=== PATIENT | male | born 2000 | race Caucasian/White ===

== ENCOUNTER 2024-02-14 12:34 | Emergency (ER) | payer BC ==
[~2024-02-14] VITALS: Ht 182.9 cm; Wt 81.8 kg
[~2024-02-14 12:34] MED LIST: ILOTYCIN5 MG/GM OP
[2024-02-14 12:39] VITALS: TEMP 98.6
[2024-02-14] MEDS ORDERED: NS 1,000 ML IV ONE (14:00)
[2024-02-14] MEDS ORDERED: dexAMETHasone 10 MG/ML VIAL IV ONE (14:00)
[2024-02-14] MEDS ORDERED: Ketorolac 30 MG/ML VIAL IV ONE (14:00)
[2024-02-14 15:45] VITALS: BP 124/63; PULSE 78
== END 2024-02-14 15:49 | disposition home or self-care (01) ==
LOC: COL.ER 12:34
DX: B27.90 Infectious mononucleosis, unspecified without complication (principal); J03.90 Acute tonsillitis, unspecified; Z79.52 Long term (current) use of systemic steroids
CPT/HCPCS: J1100; J1885; J7030

== ENCOUNTER 2024-02-16 02:51 | Emergency (ER) | payer BC ==
[~2024-02-16] VITALS: Ht 182.9 cm; Wt 81.8 kg
[2024-02-16 03:01] VITALS: TEMP 98.4
[2024-02-16] MEDS ORDERED: Ketorolac 15 MG/ML VIAL IV ONE (03:15)
[2024-02-16] MEDS ORDERED: dexAMETHasone 10 MG/ML VIAL IV ONE (03:15)
[2024-02-16] MEDS ORDERED: NS 1,000 ML IV ONE (03:15)
[2024-02-16] MEDS ORDERED: fentaNYL 50 MCG/ML 2 ML VIAL IV ONE (03:15)
[2024-02-16] MEDS ORDERED: Lidocaine 2% Viscous 15 ML UNIT DOSE MM ONE (03:15)
[2024-02-16 03:29] LABS: HEMATOCRIT 43.4 % (42.0-52.0); HEMOGLOBIN 15.2 g/dl (13.5-18.0); MEAN CELL VOLUME 86 fl (80.0-100.0); MEAN CORPUSCULAR HEMOGLOBIN 30 pg (27-31); MEAN CORPUSCULAR HGB CONC 35 g/dl (33.0-37.0); MEAN PLATELET VOLUME 8.8 fl (7.4-10.4); PLATELET COUNT 220 K/mm3 (130-400); RED BLOOD COUNT 5.06 M/mm3 (4.20-5.60); REDCELL DISTRIBUTION WIDTH-CV 12.9 % (11.5-14.5)
[2024-02-16 03:41] LABS: CREATININE, serum 1.02 mg/dL (0.72-1.25); POTASSIUM 3.6 mEq/L (3.5-4.5); TOTAL PROTEIN 6.9 g/dl (6.2-8.1)
[2024-02-16] MEDS ORDERED: NS 50 ML IV SCH (03:58)
[2024-02-16] MEDS ORDERED: Iohexol 300 - 100 ML VIAL IV ONE (03:58)
[2024-02-16 04:04] LABS: BAND 6 % (0-10); LYMPHOCYTE 29 % (20.0-51.0); NEUTROPHILS 59 % (42.0-75.2); PLATELET ESTIMATE NORMAL (NORMAL)
[2024-02-16 04:18] LABS: BILIRUBIN,TOTAL 1.1 mg/dL (0.2-1.2)
[2024-02-16] MEDS ORDERED: LIDOCAINE HC20 MG/M2 PO (04:27)
[2024-02-16] MEDS ORDERED: Home HYDROcodone/Acetaminophen 5/325 MG #4 TABS/PACK PO ONE (04:30)
[2024-02-16] MEDS ORDERED: Morphine 4 MG/ML VIAL IV ONE (04:30)
[2024-02-16 05:00] VITALS: BP 120/78; PULSE 73
== END 2024-02-16 05:00 | disposition home or self-care (01) ==
LOC: COL.ER 02:51
PROVIDERS: Emergency Medicine
DX: J03.90 Acute tonsillitis, unspecified (principal); B27.90 Infectious mononucleosis, unspecified without complication
CPT/HCPCS: J1100; J1885; J2270; J3010; J7030; Q9967